=== PATIENT | male | born 1960 | race African-American/Black ===

== ENCOUNTER 2017-06-15 11:16 | Emergency (ER) | payer SELFPAY ==
[~2017-06-15] VITALS: Ht 188 cm; Wt 125.0 kg
[2017-06-15 18:33] LABS: BASOPHILS % 0.4 % (0.0-2.0); EOSINOPHILS % 0.2 % (0.0-5.0); HEMATOCRIT. 46.1 % (42.0-52.0); LYMPHOCYTES % 11.5 % (20.0-50.0); MEAN CORPUSCULAR HEMOGLOBIN 28.5 pg (28.0-32.0); MEAN CORPUSCULAR VOLUME 87.6 fL (80.0-94.0); MEAN PLATELET VOLUME 10.9 fl (7.4-10.4); MONOCYTES % 4.5 % (2.0-8.0); NEUTROPHILS % 83.4 % (40.0-76.0); PLATELET 154 x1000/uL (130-400); RED BLOOD CELL COUNT 5.26 mill/uL (4.7-6.1); RED CELL DISTRIBUTION WIDTH 14.1 % (11.6-14.6)
[2017-06-15 18:37] LABS: INR 1.1; PROTHROMBIN TIME 11.8 sec (9.4-11.6)
[2017-06-15 18:45] LABS: CARBON DIOXIDE 27 mEq/L (21-32); CHLORIDE 103 mEq/L (98-107)
[2017-06-15] MEDS: SODIUM CHLORIDE 0.9% 1,000 ML IV ONE (18:48)
[2017-06-15] MEDS: KETOROLAC 30MG/ML VIAL IV STA (18:49)
[2017-06-15] MEDS: ONDANSETRON HCL 4MG/2ML VIAL IV STA (18:49)
[2017-06-15 19:23] LABS: CLARITY URINE CLEAR (CLEAR); COLOR URINE YELLOW (YELLOW); KETONES URINE TRACE (NEGATIVE); LEUKOCYTE ESTERASE URINE NEGATIVE (NEGATIVE); NITRITE URINE NEGATIVE (NEGATIVE); OCCULT BLOOD URINE NEGATIVE (NEGATIVE); PROTEIN URINE TRACE (NEGATIVE); SPECIFIC GRAVITY URINE 1.032 (1.005-1.030); UROBILINOGEN URINE 0.2 E.U./dL (0.2-1.0)
[2017-06-15 22:46] VITALS: BP 118/77
== END 2017-06-16 00:11 | disposition home or self-care (01) ==
LOC: ER 12:44
DX: A08.4 Viral intestinal infection, unspecified (principal); I10 Essential (primary) hypertension; R79.1 Abnormal coagulation profile
CPT/HCPCS: 36415; 80053; 81001; 83690; 85025; 85610; 96361; 96374; 96375; 99284; J1885; J2405; J7030; Z7610

== ENCOUNTER 2018-07-03 17:08 | Emergency (ER) | payer SELFPAY ==
[~2018-07-03] VITALS: Ht 188 cm; Wt 120.0 kg
[2018-07-04 01:56] LABS: BASOPHILS % 0.4 % (0.0-2.0); EOSINOPHILS % 2.5 % (0.0-5.0); HEMOGLOBIN. 14.5 g/dL (14.0-18.0); LYMPHOCYTES % 43.7 % (20.0-50.0); MEAN CORPUSCULAR HEMOGLOBIN 27.9 pg (28.0-32.0); MEAN CORPUSCULAR VOLUME 88.5 fL (80.0-94.0); MEAN PLATELET VOLUME 10.9 fl (7.4-10.4); MONOCYTES % 10.8 % (2.0-8.0); NEUTROPHILS % 42.6 % (40.0-76.0); PLATELET 161 x1000/uL (130-400); RED BLOOD CELL COUNT 5.19 mill/uL (4.7-6.1); RED CELL DISTRIBUTION WIDTH 14.2 % (11.6-14.6)
[2018-07-04 01:58] LABS: CHLORIDE 107 mEq/L (98-107)
[2018-07-04 01:59] LABS: INR 1.1; PROTHROMBIN TIME 11.3 sec (9.1-11.1)
[2018-07-04 02:04] LABS: ETHANOL BLOOD < 10 mg/dL
[2018-07-04 02:29] LABS: COLOR URINE AMBER (YELLOW); KETONES URINE NEGATIVE (NEGATIVE); LEUKOCYTE ESTERASE URINE NEGATIVE (NEGATIVE); NITRITE URINE NEGATIVE (NEGATIVE); OCCULT BLOOD URINE NEGATIVE (NEGATIVE); PH URINE 5.5 (4.5-8.0); PROTEIN URINE NEGATIVE (NEGATIVE); SPECIFIC GRAVITY URINE 1.023 (1.005-1.030)
[2018-07-04 02:39] LABS: CLARITY URINE CLEAR (CLEAR)
[2018-07-04 02:45] LABS: *AMPHETAMINES SCREEN URINE NEGATIVE (NEGATIVE); *BARBITURATES SCREEN URINE NEGATIVE (NEGATIVE); *BENZODIAZEPINES SCREEN URINE NEGATIVE (NEGATIVE); *COCAINE SCREEN URINE NEGATIVE (NEGATIVE)
[2018-07-04 02:46] LABS: CANNABINOID URINE SCREEN NEGATIVE (NEGATIVE); METHADONE URINE SCREEN NEGATIVE (NEGATIVE); OPIATES URINE SCREEN NEGATIVE (NEGATIVE); PHENCYCLIDINE URINE SCREEN NEGATIVE (NEGATIVE)
[2018-07-04 05:16] VITALS: BP 155/97
== END 2018-07-04 05:16 | disposition home or self-care (01) ==
LOC: ER 17:08
DX: I10 Essential (primary) hypertension (principal); R20.2 Paresthesia of skin; Z91.14 Patient's other noncompliance with medication regimen
CPT/HCPCS: 36415; 70450; 80053; 80305; 81003; 82962; 85025; 85610; 99284; G0482

== ENCOUNTER 2018-08-01 13:52 | Emergency (ER) | payer SELFPAY ==
[~2018-08-01] VITALS: Ht 188 cm; Wt 118.0 kg
[2018-08-01 16:52] LABS: CLARITY URINE CLEAR (CLEAR); COLOR URINE YELLOW (YELLOW); KETONES URINE NEGATIVE (NEGATIVE); LEUKOCYTE ESTERASE URINE NEGATIVE (NEGATIVE); NITRITE URINE NEGATIVE (NEGATIVE); OCCULT BLOOD URINE NEGATIVE (NEGATIVE); PROTEIN URINE NEGATIVE (NEGATIVE); SPECIFIC GRAVITY URINE 1.011 (1.005-1.030)
[2018-08-01 16:58] LABS: BASOPHILS % 0.4 % (0.0-2.0); EOSINOPHILS % 1.7 % (0.0-5.0); HEMOGLOBIN. 14.9 g/dL (14.0-18.0); LYMPHOCYTES % 32.4 % (20.0-50.0); MEAN CORPUSCULAR HEMOGLOBIN 28.5 pg (28.0-32.0); MEAN CORPUSCULAR VOLUME 87.9 fL (80.0-94.0); MEAN PLATELET VOLUME 11.2 fl (7.4-10.4); MONOCYTES % 9.2 % (2.0-8.0); NEUTROPHILS % 56.3 % (40.0-76.0); PLATELET 181 x1000/uL (130-400); RED BLOOD CELL COUNT 5.23 mill/uL (4.7-6.1)
[2018-08-01 17:05] LABS: CHLORIDE 103 mEq/L (98-107)
[2018-08-01 17:45] VITALS: BP 121/79
== END 2018-08-01 17:46 | disposition home or self-care (01) ==
LOC: ER 13:52
DX: T50.2X5A Adverse effect of carbonic-anhydrase inhibitors, benzothiadiazides and other diuretics, initial encounter (principal); R35.0 Frequency of micturition; M54.5 Low back pain; I10 Essential (primary) hypertension; Y92.018 Other place in single-family (private) house as the place of occurrence of the external cause
CPT/HCPCS: 36415; 99283

== ENCOUNTER 2019-09-17 20:55 | Emergency (ER) | payer SELFPAY ==
[~2019-09-17] VITALS: Ht 188 cm; Wt 120.0 kg
[2019-09-17 22:25] VITALS: BP 129/76
== END 2019-09-17 22:27 | disposition home or self-care (01) ==
LOC: ER 20:55
DX: R51 Headache (principal); I10 Essential (primary) hypertension; Z59.0 Homelessness
CPT/HCPCS: 99281

== ENCOUNTER 2020-08-13 23:16 | Emergency (ER) | payer SELFPAY ==
[~2020-08-13] VITALS: Ht 188 cm; Wt 118.0 kg
[2020-08-13] MEDS ORDERED: KETOROLAC 30MG/ML VIAL IV STA (23:47)
[2020-08-14 00:15] LABS: BASOPHILS % 0.3 % (0.0-2.0); EOSINOPHILS % 0.9 % (0.0-5.0); HEMATOCRIT. 40.9 % (42.0-52.0); HEMOGLOBIN. 13.4 g/dL (14.0-18.0); LYMPHOCYTES % 10.2 % (20.0-50.0); MEAN CORPUSCULAR HEMOGLOBIN 28.6 pg (28.0-32.0); MEAN CORPUSCULAR VOLUME 87.3 fL (80.0-94.0); MEAN PLATELET VOLUME 10.4 fl (7.4-10.4); MONOCYTES % 9.5 % (2.0-8.0); NEUTROPHILS % 79.1 % (40.0-76.0); PLATELET 172 x1000/uL (130-400); RED BLOOD CELL COUNT 4.68 mill/uL (4.7-6.1); RED CELL DISTRIBUTION WIDTH 13.9 % (11.6-14.6)
[2020-08-14 00:25] LABS: CHLORIDE 101 mEq/L (98-107); INR 1.1; PROTHROMBIN TIME 11.3 sec (9.6-11.0)
[2020-08-14 04:06] VITALS: BP 132/79
== END 2020-08-14 04:12 | disposition home or self-care (01) ==
LOC: ER 23:22
DX: R07.89 Other chest pain (principal); I10 Essential (primary) hypertension
CPT/HCPCS: 36415; 71045; 80053; 83690; 84484; 85025; 85610; 93005; 96374; 99285; J1885

== ENCOUNTER 2022-10-07 02:00 | Inpatient (IN) | payer SELFPAY ==
[~2022-10-07] VITALS: Ht 188 cm; Wt 117.2 kg
[2022-10-07] MEDS ORDERED: ONDANSETRON HCL 4MG/2ML INJ IV STA (02:29)
[2022-10-07] MEDS ORDERED: SODIUM CHLORIDE 0.9% 1,000 ML IV ONE ×2 (02:30→05:00)
[2022-10-07] MEDS ORDERED: MIDAZOLAM HCL 2 MG/2 ML VIAL IV ONE (02:45)
[2022-10-07 02:48] LABS: BASOPHILS % 0.3 % (0.0-2.0); EOSINOPHILS % 0.4 % (0.0-5.0); HEMATOCRIT. 48.1 % (42.0-52.0); HEMOGLOBIN. 15.6 g/dL (14.0-18.0); LYMPHOCYTES % 11.4 % (20.0-50.0); MEAN CORPUSCULAR HEMOGLOBIN 29.1 pg (28.0-32.0); MEAN CORPUSCULAR VOLUME 89.6 fL (80.0-94.0); MEAN PLATELET VOLUME 11.4 fl (7.4-10.4); MONOCYTES % 6.9 % (2.0-8.0); PLATELET 204 x1000/uL (130-400); RED BLOOD CELL COUNT 5.37 mill/uL (4.7-6.1); RED CELL DISTRIBUTION WIDTH 14.5 % (11.6-14.6)
[2022-10-07 02:52] LABS: INR 1.1; PROTHROMBIN TIME 11.3 sec (9.6-11.0)
[2022-10-07 03:53] LABS: CHLORIDE 99 mEq/L (98-107)
[2022-10-07 05:44] LABS: CLARITY URINE CLEAR (CLEAR); COLOR URINE YELLOW (YELLOW); KETONES URINE TRACE (NEGATIVE); LEUKOCYTE ESTERASE URINE NEGATIVE (NEGATIVE); NITRITE URINE NEGATIVE (NEGATIVE); OCCULT BLOOD URINE NEGATIVE (NEGATIVE); PROTEIN URINE TRACE (NEGATIVE); SPECIFIC GRAVITY URINE 1.033 (1.005-1.030); UROBILINOGEN URINE 0.2 E.U./dL (0.2-1.0)
[2022-10-07] MEDS ORDERED: SODIUM CHLORIDE 0.9% 1000ML BAG (SEPSIS BOLUS) IV ONE (07:00)
[2022-10-07] MEDS ORDERED: ONDANSETRON HCL 4MG/2ML INJ IV PRN (07:00)
[2022-10-07] MEDS ORDERED: ACETAMINOPHEN 325MG TABLET PO PRN ×2 (07:00)
[2022-10-07] MEDS ORDERED: MAGNESIUM/ALUMINUM HYDROXIDE/SIMETHICONE 30ML UDC PO PRN (07:00)
[2022-10-07] MEDS ORDERED: CLONIDINE 0.1MG TABLET PO PRN (07:00)
[2022-10-07] MEDS ORDERED: ZOLPIDEM TARTRATE 5MG TABLET PO PRN (07:00)
[2022-10-07] MEDS ORDERED: NITROGLYCERIN 0.4MG TABLET SL SL PRN (07:00)
[2022-10-07] MEDS ORDERED: KETOROLAC 15MG/ML VIAL IV PRN (07:00)
[2022-10-07] MEDS ORDERED: DOCUSATE SODIUM 100MG CAPSULE PO PRN (07:00)
[2022-10-07] MEDS ORDERED: GUAIFENESIN 200MG/10ML SUGAR FREE UDC PO PRN (07:00)
[2022-10-07] MEDS ORDERED: IPRATROPIUM/ALBUTEROL 0.5-3(2.5)MG/3ML NEB NEB PRN (07:00)
[2022-10-07] MEDS ORDERED: DEXTROSE 50% WATER 50ML SYRINGE IV PRN (07:15)
[2022-10-07 08:09] LABS: ETHANOL BLOOD < 10 mg/dL; HDL CHOLESTEROL 44 mg/dL (40-59); LDL CHOLESTEROL 125 mg/dL (5-100); T4 FREE 1.03 ng/dL (0.76-1.46); TOTAL IRON BINDING CAPACITY 262 ug/dL (250-450)
[2022-10-07] MEDS ORDERED: CEFTRIAXONE 1,000 MG in DEXTROSE 5% WATER 50 ML IV SCH (09:00)
[2022-10-07] MEDS ORDERED: ASPIRIN 325MG EC TABLET PO SCH (09:00)
[2022-10-07 09:15] LABS: BG BASE EXCESS -3.3 mmol/L (-2.0-2.0); BG CARBOXYHEMOGLOBIN 0.4 % (0.5-1.5); BG DEOXYHEMOGLOBIN 4.1 % (0.0-5.0); BG FRACTION INSPIRED OXYGEN 21; BG HCO3 ACT 20.2 mmol/L (22.0-26.0); BG METHEMOGLOBIN 0.3 % (0.0-1.5); BG OXYGEN SATURATION 95.9 % (92.0-98.5); BG OXYHEMOGLOBIN 95.2 % (94.0-97.0); BG PCO2 32.4 mmHg (35.0-45.0); BG PH 7.413 (7.350-7.450); BG PO2 77.6 mmHg (75.0-100.0); BG SAMPLE SITE RIGHT RADIAL; BG TOTAL HEMOGLOBIN 14.7 g/dL (12.0-18.0); BG VENT MODE ROOM AIR
[2022-10-07] MEDS: SODIUM CHLORIDE 0.9% 1,000 ML IV SCH ×2 (09:19→16:29)
[2022-10-07] MEDS: DILTIAZEM HCL 60MG TABLET PO SCH ×3 (09:19→17:55)
[2022-10-07] MEDS: INSULIN LISPRO 100 UNITS/ML SUBCUT SCH ×7 (09:20→20:36)
[2022-10-07 09:22] LABS: *AMPHETAMINES SCREEN URINE NEGATIVE (NEGATIVE); *BARBITURATES SCREEN URINE NEGATIVE (NEGATIVE); *BENZODIAZEPINES SCREEN URINE PRESUMTIVE POSITIVE (NEGATIVE); *COCAINE SCREEN URINE NEGATIVE (NEGATIVE); CANNABINOID URINE SCREEN NEGATIVE (NEGATIVE); METHADONE URINE SCREEN NEGATIVE (NEGATIVE); OPIATES URINE SCREEN NEGATIVE (NEGATIVE); PHENCYCLIDINE URINE SCREEN NEGATIVE (NEGATIVE)
[2022-10-07] MEDS: PANTOPRAZOLE SODIUM 40 MG/VIAL IV SCH (09:24)
[2022-10-07] MEDS: BLOOD SUGAR DIAGNOSTIC STRIP TEST SCH ×4 (09:25→20:36)
[2022-10-07 10:51] VITALS: BP 160/73
[2022-10-07 12:00] VITALS: BP 160/73
[2022-10-07] MEDS: INSULIN GLARGINE 100 UNITS/ML SUBCUT SCH (12:14)
[2022-10-07 16:00] VITALS: BP 119/71
[2022-10-07 16:58] LABS: CREATINE KINASE MB FRACTION 6.6 ng/mL (0.5-3.6)
[2022-10-07 20:00] VITALS: BP 121/78
[2022-10-08] VITALS: BP 132/62
[2022-10-08 00:19] LABS: CREATINE KINASE MB FRACTION 5.1 ng/mL (0.5-3.6)
[2022-10-08] MEDS: DILTIAZEM HCL 60MG TABLET PO SCH ×4 (00:32→18:00)
[2022-10-08] MEDS: SODIUM CHLORIDE 0.9% 1,000 ML IV SCH ×2 (00:32→12:18)
[2022-10-08 04:00] VITALS: BP 141/81
[2022-10-08 05:41] LABS: BASOPHILS % 0.3 % (0.0-2.0); EOSINOPHILS % 2.7 % (0.0-5.0); HEMATOCRIT. 39.3 % (42.0-52.0); HEMOGLOBIN. 12.8 g/dL (14.0-18.0); LYMPHOCYTES % 26.6 % (20.0-50.0); MEAN CORPUSCULAR HEMOGLOBIN 28.8 pg (28.0-32.0); MEAN PLATELET VOLUME 10.5 fl (7.4-10.4); MONOCYTES % 7.8 % (2.0-8.0); NEUTROPHILS % 62.6 % (40.0-76.0); PLATELET 150 x1000/uL (130-400); RED BLOOD CELL COUNT 4.47 mill/uL (4.7-6.1); RED CELL DISTRIBUTION WIDTH 14.2 % (11.6-14.6)
[2022-10-08 05:51] LABS: CHLORIDE 109 mEq/L (98-107)
[2022-10-08 06:00] LABS: PHOSPHORUS 1.9 mg/dL (2.5-4.9)
[2022-10-08] MEDS: BLOOD SUGAR DIAGNOSTIC STRIP TEST SCH ×4 (06:18→20:09)
[2022-10-08] MEDS: INSULIN LISPRO 100 UNITS/ML SUBCUT SCH ×7 (06:20→21:00)
[2022-10-08 08:00] VITALS: BP 128/83
[2022-10-08] MEDS ORDERED: MAGNESIUM 2 G PREMIX 50 ML IV ONE (08:00)
[2022-10-08] MEDS ORDERED: POTASSIUM PHOS,M-BASIC-D-BASIC 20 MMOL in DEXT 5% WATER 243.3333 ML IV SCH (08:30)
[2022-10-08] MEDS: PANTOPRAZOLE SODIUM 40 MG/VIAL IV SCH (09:28)
[2022-10-08] MEDS: ASPIRIN 81MG EC TABLET PO SCH (09:30)
[2022-10-08] MEDS: INSULIN GLARGINE 100 UNITS/ML SUBCUT SCH (09:34)
[2022-10-08 12:00] VITALS: BP 122/59
[2022-10-08] MEDS: CEFTRIAXONE 1,000 MG in DEXTROSE 5% WATER 50 ML IV SCH (12:18)
[2022-10-08 16:00] VITALS: BP 137/78
[2022-10-08 20:00] VITALS: BP 127/64
[2022-10-09] VITALS: BP 150/91
[2022-10-09] MEDS: DILTIAZEM HCL 60MG TABLET PO SCH ×2 (00:57→06:29)
[2022-10-09] MEDS: SODIUM CHLORIDE 0.9% 1,000 ML IV SCH ×2 (02:22→09:27)
[2022-10-09 04:00] VITALS: BP 141/88
[2022-10-09] MEDS: BLOOD SUGAR DIAGNOSTIC STRIP TEST SCH (05:57)
[2022-10-09] MEDS: INSULIN LISPRO 100 UNITS/ML SUBCUT SCH ×3 (06:27→06:40)
[2022-10-09 06:51] LABS: BASOPHILS % 0.3 % (0.0-2.0); EOSINOPHILS % 3.3 % (0.0-5.0); HEMATOCRIT. 38.8 % (42.0-52.0); LYMPHOCYTES % 34.6 % (20.0-50.0); MEAN CORPUSCULAR HEMOGLOBIN 29.1 pg (28.0-32.0); MEAN CORPUSCULAR VOLUME 86.9 fL (80.0-94.0); MEAN PLATELET VOLUME 10.9 fl (7.4-10.4); MONOCYTES % 10.7 % (2.0-8.0); NEUTROPHILS % 51.1 % (40.0-76.0); PLATELET 149 x1000/uL (130-400); RED BLOOD CELL COUNT 4.46 mill/uL (4.7-6.1); RED CELL DISTRIBUTION WIDTH 13.6 % (11.6-14.6)
[2022-10-09 06:59] LABS: CHLORIDE 110 mEq/L (98-107)
[2022-10-09 07:04] LABS: PHOSPHORUS 2.2 mg/dL (2.5-4.9)
[2022-10-09 08:00] VITALS: BP 142/85
[2022-10-09] MEDS: CEFTRIAXONE 1,000 MG in DEXTROSE 5% WATER 50 ML IV SCH ×2 (09:21→09:22)
[2022-10-09] MEDS: PANTOPRAZOLE SODIUM 40 MG/VIAL IV SCH (09:21)
[2022-10-09] MEDS: INSULIN GLARGINE 100 UNITS/ML SUBCUT SCH (09:26)
[2022-10-09] MEDS: ASPIRIN 81MG EC TABLET PO SCH (09:27)
[2022-10-09] MEDS ORDERED: LANTUSUD SUBCUT (10:09)
[2022-10-09] MEDS ORDERED: ATOR10TA MT (10:09)
[2022-10-09] MEDS ORDERED: ASPI-1406 PO (10:09)
[2022-10-09] MEDS ORDERED: INSLIS SUBCUT (10:09)
[2022-10-09] MEDS ORDERED: FAMO-135 MT (10:09)
[2022-10-09] MEDS ORDERED: DILT240C91 MT (10:09)
[2022-10-09 10:16] VITALS: BP 142/85
[2022-10-09] MEDS ORDERED: POTASSIUM-SODIUM PHOSPHATE POWDER PACKET PO SCH (11:00)
[2022-10-10] MEDS ORDERED: SYRI-219 SQ (15:45)
== END 2022-10-09 11:00 | disposition home or self-care (01) | DRG 420 ==
LOC: ER 02:00 → 7EST 04:48
PROVIDERS: ADMIT Internal Medicine; ATTEND Internal Medicine
DX: E11.10 Type 2 diabetes mellitus with ketoacidosis without coma (principal); I21.A1 Myocardial infarction type 2; E27.8 Other specified disorders of adrenal gland; R65.10 Systemic inflammatory response syndrome (SIRS) of non-infectious origin without acute organ dysfunction; I47.1 Supraventricular tachycardia; E86.0 Dehydration; E87.1 Hypo-osmolality and hyponatremia; I48.91 Unspecified atrial fibrillation; E11.65 Type 2 diabetes mellitus with hyperglycemia; I10 Essential (primary) hypertension; I16.0 Hypertensive urgency; K80.20 Calculus of gallbladder without cholecystitis without obstruction; Z79.4 Long term (current) use of insulin; Z82.49 Family history of ischemic heart disease and other diseases of the circulatory system
CPT/HCPCS: 36415; 36600; 71045; 74176; 80048; 80053; 80061; 80305; 80320; 81003; 82010; 82375; 82550; 82553; 82607; 82746; 82805; 82962; 83036; 83540; 83550; 83605; 83735; 83930; 84100; 84145; 84439; 84443; 84484; 85025; 85379; 86850; 86900; 93005; 93306; 93970; 99291; C9113; J0696; J1815; J2250; J2405; J3475; J3490; J7030; J7060; G0480